=== PATIENT | male | born 1970 | race Caucasian/White ===

== ENCOUNTER 2017-07-16 12:34 | Emergency (ER) | payer SELFPAY ==
[2017-07-16 12:46] VITALS: BP 188/96
--- NOTE | 2017-07-16 13:28 | UC ---
Ear Complaint HPI - HPI Summary HPI Summary: TWO WEEKS OF LEFT EAR ITCHINESS, LAST TWO DAYS HAS HAD LEFT EAR PAIN. NO DISCHARGE. NO FEVER. NO TRAUMA. PATIENT HAS 'WHITE COAT HIGH BLOOD PRESSURE' GETS NERVOUS AROUND DOCTORS OFFICES, FOLLOWED FOR HTN BY PRIMARY CARE. - History of Current Complaint Chief Complaint: UCEar Stated Complaint: EAR PAIN Time Seen by Provider: 07/16/17 12:38 Hx Obtained From: Patient, Family/Business Development Recruiter Onset/Duration: Gradual Onset, Lasting Days Severity Initially: Mild Severity Currently: Moderate Pain Intensity: 0 Pain Scale Used: 0-10 Numeric - Allergies/Home Medications Allergies/Adverse Reactions: Allergies Allergy/AdvReac Type Severity Reaction Status Date / Time Penicillins Allergy Intermediate Rash Verified 07/16/17 12:46 Home Medications: Home Medications Hydrochlorothiazide TAB* [Hydrodiuril TAB*] 25 mg PO DAILY 07/16/17 [History Confirmed 07/16/17] Ibuprofen TAB* [Advil TAB*] 800 mg PO BEDTIME 07/16/17 [History Confirmed ] Metoprolol Tartrate TAB* [Lopressor TAB*] 50 mg PO DAILY 07/16/17 [History Confirmed 07/16/17] Omeprazole CAP* [Prilosec CAP* 20 MG] 20 mg PO BID 07/16/17 [History Confirmed 07/16/17] PMH/Surg Hx/FS Hx/Imm Hx Previously Healthy: Yes - Surgical History Surgical History: None - Family History Known Family History: Positive: Hypertension - Social History Occupation: Employed Full-time Lives: With Family Alcohol Use: None Substance Use Type: None Smoking Status (MU): Never Smoked Tobacco Review of Systems Constitutional: Negative Skin: Negative Eyes: Negative ENT: Ear Ache - LEFT Respiratory: Negative Cardiovascular: Negative Gastrointestinal: Negative Genitourinary: Negative Motor: Negative Neurovascular: Negative Musculoskeletal: Negative Neurological: Negative Psychological: Negative Is Patient Immunocompromised?: No All Other Systems Reviewed And Are Negative: Yes Physical Exam Triage Information Reviewed: Yes Appearance: Well-Appearing, No Pain Distress, Well-Nourished, Obese Vital Signs: Initial Vital Signs Temp 97.9 F 07/16/17 12:40 Pulse 77 07/16/17 12:40 Resp 16 07/16/17 12:40 BP 188/96 07/16/17 12:40 Pulse Ox 100 11/01/17 12:40 Vital Signs Reviewed: Yes Eye Exam: Normal ENT: Positive: Other - LEFT EAC EDEMA AND ERYTHEMA S/P IRRIGATION Dental Exam: Normal Neck exam: Normal Neck: Positive: Supple, Nontender Respiratory Exam: Normal Respiratory: Positive: Chest non-tender, Lungs clear, Normal breath sounds, No respiratory distress, No accessory muscle use Cardiovascular Exam: Normal Cardiovascular: Positive: RRR, No Murmur, Pulses Normal, Brisk Capillary Refill Musculoskeletal Exam: Normal Neurological Exam: Normal Psychological Exam: Normal Skin Exam: Normal Ear Complaint Course/Dx - Differential Dx/Diagnosis Differential Diagnosis/HQI/PQRI: Otitis Externa, URI Provider Diagnoses: LEFT OTITIS EXTERNA Discharge - Discharge Plan Condition: Stable Disposition: HOME Prescriptions: Azithromycin TAB* [Zithromax TAB (Z-SATNAM) 250 mg #6 tabs] 250 mg PO DAILY #6 tab Neomyc/Polym/HC 1% OTIC SUSP* [Cortisporin Otic Susp 1%*] 4 drop LEFT EAR TID # 1 btl Patient Education Materials: Otitis Externa (ED) Referrals: Zach Deleon [Primary Care Provider] -
== END 2017-07-16 13:21 | disposition home or self-care (01) ==
LOC: UCCORT 12:34
DX: H60.92 Unspecified otitis externa, left ear (principal); Z88.0 Allergy status to penicillin
CPT/HCPCS: 99203; G0463